=== PATIENT | male | born 1945 | race Caucasian/White ===

== ENCOUNTER 2017-02-28 00:47 | Outpatient (CLI) | payer MEDICARE, OTHER | END 2017-02-28 00:48 | disposition critical access hospital (66) | LOC: EMS 00:47 | PROVIDERS: ATTEND Surgery | DX: R07.9 Chest pain, unspecified (principal) | CPT/HCPCS: A0425; A0427 ==

== ENCOUNTER 2017-02-28 01:27 | Emergency (ER) | payer MEDICARE, OTHER ==
[2017-02-28 02:11] LABS: BASOPHILS # (AUTO) 0.1 10^3/uL (0.0-0.1); BASOPHILS % (AUTO) 1.1 %; EOSINOPHILS # (AUTO) 0.3 10^3/uL (0.0-0.7); EOSINOPHILS % (AUTO) 3.9 %; HCT - HEMATOCRIT 46.2 % (42.0-52.0); HGB - HEMOGLOBIN 15.8 g/dL (14.0-18.0); LYMPHOCYTES # (AUTO) 1.6 10^3/uL (1.5-3.5); LYMPHOCYTES % (AUTO) 18.4 %; MEAN CORPUSCULAR HEMOGLOBIN 30.4 pg (27.0-31.0); MEAN CORPUSCULAR HGB CONC 34.2 g/dL (32.0-36.0); MEAN PLATELET VOLUME 7.9 fL (7.4-11.4); MONOCYTES # (AUTO) 0.5 10^3/uL (0.0-1.0); MONOCYTES % (AUTO) 6.3 %; NEUTROPHILS % (AUTO) 70.3 %; RED BLOOD COUNT 5.19 10^6/uL (4.70-6.10); RED CELL DISTRIBUTION WIDTH 13.4 % (12.0-15.0); UNCORRECTED WHITE BLOOD COUNT 8.5 x10^3/uL; WHITE BLOOD COUNT 8.5 x10^3/uL (4.8-10.8)
[2017-02-28 02:19] LABS: ALBUMIN/GLOBULIN RATIO 1.2 (1.0-2.2); BILIRUBIN,TOTAL 1.1 mg/dL (0.2-1.0); CALCIUM 8.7 mg/dL (8.5-10.3); POTASSIUM 3.9 mmol/L (3.5-5.0); TOTAL PROTEIN 6.8 g/dL (6.7-8.2)
[2017-02-28 03:17] VITALS: BP 140/77
--- NOTE | 2017-02-28 03:30 | ED Physician Documentation ---
PD HPI CHEST PAIN - Stated complaint Stated Complaint: CP - Chief complaint Chief Complaint: Cardiac - History obtained from History obtained from: Patient - History of Present Illness Timing - onset: Today Timing - onset during: Rest Timing - duration: Hours Timing - details: Abrupt onset, Now resolved, Intermittant Pain level max: 6 Pain level now: 0 Quality: Pain Location: Substernal Radiation: No: Jaw, Neck, Back, Abdominal, Left upper extremity, Right upper extremity Improved by: Nothing Worsened by: No: Exertion, Inspiration, Eating, Movement, Palpation, Position Associated symptoms: No: Shortness of air, Diaphoresis, Nausea, Vomiting, Feeling faint / dizzy, General Weakness, Palpitations, Cough Recently seen: Not recently seen - Additional information Additional information: patient complains of chest pain midline, initially started mid day today but resolved, then returned at 8:30 tonight. The pain has resolved prior to this evaluation. Review of Systems Constitutional: reports: Reviewed and negative Cardiac: reports: Chest pain / pressure. denies: Palpitations, Calf pain Respiratory: reports: Reviewed and negative GI: reports: Reviewed and negative PD PAST MEDICAL HISTORY - Past Medical History Past Medical History: Yes Cardiovascular: [place] - Past Surgical History Past Surgical History: Yes - Allergies Allergies/Adverse Reactions: Allergies Allergy/AdvReac Type Severity Reaction Status Date / Time No Known Drug Allergies Allergy Verified 02/28/17 01:49 - Social History Does the pt smoke?: No Smoking Status: Never smoker Does the pt have substance abuse?: No - Immunizations Immunizations are current?: Yes PD ED PE NORMAL - Vitals Vital signs reviewed: Yes - General General: Alert and oriented X 3, No acute distress, Well developed/nourished - Cardiac Cardiac: RRR, No murmur - Respiratory Respiratory: No respiratory distress, Clear bilaterally - Abdomen Abdomen: Normal bowel sounds, Soft, Non tender - Derm Derm: Normal color, Warm and dry - Extremities Extremities: No edema Results - Vitals Vitals: Oxygen O2 Source Room air - EKG (time done) No standard instances Rate: Rate (enter#) (63) Rhythm: NSR [place]: LAD Intervals: Normal ND QRS: Normal Ischemia: Normal ST segments, Q waves (III, aVF) - Labs Labs: Laboratory Tests 02/28/17 02/28/17 02/28/17 02:00 02:00 02:00 WBC 8.5 RBC 5.19 Hgb 15.8 Hct 46.2 MCV 89.0 MCH 30.4 MCHC 34.2 RDW 13.4 Plt Count 187 MPV 7.9 Neut # 6.0 Lymph # 1.6 [place] # 0.5 Eos # 0.3 Baso # 0.1 Absolute Nucleated RBC 0.00 Nucleated RBC % 0.0 Sodium 137 Potassium 3.9 Chloride 108 Carbon Dioxide 23 Anion Gap 6.0 BUN 16 Creatinine 1.0 Estimated GFR (MDRD) 74 L Glucose 128 H Calcium 8.7 Total Bilirubin 1.1 H AST 18 ALT 18 Alkaline Phosphatase 111 Troponin I < 0.04 Total Protein 6.8 Albumin 3.7 Globulin 3.1 Albumin/Globulin Ratio 1.2 Lipase 22 PD MEDICAL DECISION MAKING - ED course Complexity details: reviewed results, re-evaluated patient, considered differential, d/w patient Departure - Departure Disposition: 01 Home, Self Care Clinical Impression: Chest pain Qualifiers: Chest pain type: unspecified Qualified Code(s): R07.9 - Chest pain, unspecified Condition: Good Instructions: ED Chest Pain Atypical Unkn Cause Follow-Up: Maureen Jo PA [Primary Care Provider] - Comments: I recommend you contact your impregnating helper to arrange for next available appointment. You should also consider calling your primary care provider's office to inquire as to moving the scheduled appointment up to a sooner date. Discharge Date/Time: 02/28/17 03:55
== END 2017-02-28 03:55 | disposition home or self-care (01) ==
LOC: EDUNIT# → ED 01:27
DX: R07.9 Chest pain, unspecified (principal); I25.2 Old myocardial infarction
CPT/HCPCS: 36415; 80048; 80053; 83690; 84484; 85025; 93005; 99283

== ENCOUNTER 2017-03-08 08:38 | Outpatient (CLI) | payer MEDICARE, OTHER ==
--- NOTE | 2017-03-08 18:13 | XRAY Report ---
TWO VIEW CHEST: 03/08/2017 CLINICAL INDICATION: Shortness of breath. Frontal and lateral views of the chest demonstrate a normal cardiac silhouette. The lungs are clear. No effusion or pneumothorax is present. IMPRESSION: NORMAL CHEST. JOB #: [id number] EXT JOB #:[id number]
== END 2017-03-08 08:39 | disposition home or self-care (01) ==
LOC: DI.S 08:38
PROVIDERS: ATTEND Physician Assistant
DX: R06.02 Shortness of breath (principal); Z77.090 Contact with and (suspected) exposure to asbestos; Z87.891 Personal history of nicotine dependence
CPT/HCPCS: 71020

== ENCOUNTER 2017-03-24 06:41 | Outpatient (CLI) | payer MEDICARE, OTHER | END 2017-03-24 06:42 | disposition short-term general hospital (02) | LOC: EMS 06:41 | PROVIDERS: ATTEND Surgery | DX: R07.9 Chest pain, unspecified (principal); R42 Dizziness and giddiness | CPT/HCPCS: A0170; A0425; A0427 ==

== ENCOUNTER 2018-10-20 10:20 | Outpatient (CLI) | payer MEDICARE, OTHER | END 2018-10-20 10:21 | disposition EMS.NT | LOC: EMS 10:20 | PROVIDERS: ATTEND Surgery | DX: S61.451A Open bite of right hand, initial encounter (principal); W54.0XXA Bitten by dog, initial encounter; Y92.009 Unspecified place in unspecified non-institutional (private) residence as the place of occurrence of the external cause ==

== ENCOUNTER 2018-10-20 11:54 | Emergency (ER) | payer MEDICARE, OTHER ==
[2018-10-20 11:59] VITALS: BP 145/69
[2018-10-20] MEDS ORDERED: TETANUS/DIPHTHERIA/PERTUSSIS 0.5 ML SYRINGE IM ONE (13:36)
--- NOTE | 2018-10-20 13:36 | ED Physician Documentation ---
PD HPI ANIMAL BITE - Stated complaint Stated Complaint: DOG BITE - Chief complaint Chief Complaint: Laceration - History obtained from History obtained from: Patient, Family - History of Present Illness Location of injury(ies): RUE Details of the event: Dog, Bite, Pet animal, Well appearing, Immunized, Provoked, Animal can be observed Timing - onset: Today Timing - duration: Hours Timing - details: Abrupt onset, Still present Improved by: Rest, Immobilization Worsened by: Moving, Palpating Associated symptoms: No: Weakness, Numbness, Tingling, Swelling Contributing factors: Anticoagulated. No: Immunocompromised Similar symptoms before: Has not had sx before Recently seen: Not recently seen Review of Systems Constitutional: denies: Fever Eyes: denies: Decreased vision Ears: denies: Ear pain Nose: denies: Congestion Throat: denies: Sore throat Cardiac: denies: Chest pain / pressure Respiratory: denies: Cough GI: denies: Vomiting PD PAST MEDICAL HISTORY - Past Medical History Cardiovascular: [place] - Past Surgical History Past Surgical History: Yes - Allergies Allergies/Adverse Reactions: Allergies Allergy/AdvReac Type Severity Reaction Status Date / Time No Known Drug Allergies Allergy Verified 02/28/17 01:49 - Social History Does the pt smoke?: No Smoking Status: Never smoker Does the pt have substance abuse?: No - Immunizations Immunizations are current?: Yes PD ED PE NORMAL - Vitals Vital signs reviewed: Yes (hypertensive ) - General General: Alert and oriented X 3, No acute distress, Well developed/nourished - HEENT HEENT: Atraumatic, PERRL, EOMI - Respiratory Respiratory: No respiratory distress - Derm Derm: Normal color, Warm and dry - Extremities Extremities: No deformity, No edema, Other (over the dorsum of the right hand there is a skin tear without involvement of deeper structures. There is skin avulsion to the palmar surface of the hand as well oposite the dorsal finding consistent with a bite. Also without involvement of deeper structures. 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 There is an unknown tetanus status and the patient is given a tetanus booster. Departure - Departure Disposition: 01 Home, Self Care Clinical Impression: Dog bite of right hand Qualifiers: Encounter type: initial encounter Qualified Code(s): S61.451A - Open bite of right hand, initial encounter; W54.0XXA - Bitten by dog, initial encounter Condition: Stable Instructions: ED Bite Dog Follow-Up: Maureen Jo PA [Primary Care Provider] -
== END 2018-10-20 13:52 | disposition home or self-care (01) ==
LOC: ED 11:54
DX: S61.451A Open bite of right hand, initial encounter (principal); W54.0XXA Bitten by dog, initial encounter
CPT/HCPCS: 90471; 99282; 99283

== ENCOUNTER 2019-12-28 11:15 | Outpatient (CLI) | payer MEDICARE, OTHER ==
--- NOTE | 2019-12-28 12:28 | Ultrasound Report ---
PROCEDURE: Abdomen Limited INDICATIONS: ABN LIVER FUNCTION TEST TECHNIQUE: Real-time focused scanning was performed of the abdomen, with image documentation. COMPARISON: None FINDINGS: Examination is limited by body habitus and bowel gas. Liver is normal in size and demonstrates coarse echotexture. Left hepatic lobe is not seen. Right hep atic lobe not well seen but grossly unremarkable. Gallbladder is within normal limits. No biliary rafaela paulino dilatation. Pancreas is not well seen but is within normal limits as visualized. Right kidney is normal in size without hydronephrosis. IVC is patent. IMPRESSION: 1. Limited evaluation demonstrating no acute process. Reviewed by: Caitlyn Ramirez MD on 12/28/2019 12:27 PM PDT Approved by: Caitlyn Ramirez MD on 12/28/2019 12:27 PM PDT Station ID: [id number]
== END 2019-12-28 11:16 | disposition home or self-care (01) ==
LOC: DI 11:15
PROVIDERS: ATTEND Nurse Practitioner Family
DX: R94.5 Abnormal results of liver function studies (principal)
CPT/HCPCS: 76705

== ENCOUNTER 2020-08-25 08:00 | Outpatient (CLI) | payer MEDICARE, OTHER ==
--- NOTE | 2020-08-25 10:01 | XRAY Report ---
PROCEDURE: Toe(s) LT INDICATIONS: PAIN IN LEFT FOOT TECHNIQUE: 3 views of the fifth toe(s) acquired. COMPARISON: None FINDINGS: Bones: No fractures or dislocations. No suspicious bony lesions. Soft tissues: No suspicious soft tissue densities. IMPRESSION: No trauma or osteomyelitis found. Source of pain is not seen. Reviewed by: Duarte Khan MD on 08/25/2020 10:00 AM PDT Approved by: Duarte Khan MD on 08/25/2020 10:00 AM PDT Station ID: [id number]
== END 2020-08-25 23:59 | disposition home or self-care (01) ==
LOC: DI.S 08:00
PROVIDERS: ATTEND Physician Assistant
DX: M79.672 Pain in left foot (principal)

== ENCOUNTER 2023-10-07 06:55 | Emergency (ER) | payer MEDICARE ==
--- NOTE | 2023-10-07 07:10 | ED Physician Documentation ---
PD HPI OPHTHO - Stated complaint Stated Complaint: RT EYE SWELLING - Chief complaint Chief Complaint: Heent - History obtained from History obtained from: Patient - History of Present Illness Timing - onset: How many days ago (4-5) Timing - duration: Days (4-5) Timing - details: Gradual onset Location: Right Quality / character: Aching Associated symptoms: Redness, Swelling (has had swelling and tender focally for 4-5 days, with now worse tender and redness spreading to whole of upper eyelid, mild output when he squeezed it some.), Discharge (just the past 1-2 days) Contributing factors: No: Exposed to conjunctivitis, Recent URI, Wears contacts Similar symptoms before: Has not had sx before Review of Systems Constitutional: denies: Fever, Chills, Myalgias Eyes: reports: Decreased vision (he says is slightly cloudy when there is some drainage.). denies: Loss of vision PD PAST MEDICAL HISTORY - Past Medical History Past Medical History: Yes Cardiovascular: [place] - Past Surgical History Past Surgical History: Yes - Present Medications Home Medications: Ambulatory Orders Medication Instructions Recorded Confirmed Apixaban [Eliquis] 1 tab PO BID 10/07/23 10/07/23 Atorvastatin Calcium [Lipitor] 1 tab PO DAILY 10/07/23 10/07/23 Doxycycline Hyclate 100 mg PO BID 5 Days #10 cap 10/07/23 Erythromycin Base [Erythromycin 1 applic RIGHTEYE QID #3.5 gm 10/07/23 Ophthalmic Ointment] Metoprolol Tartrate [Lopressor] 1 tab PO BID 10/07/23 10/07/23 Nitroglycerin [Nitrostat] 1 tab SL PRN PRN 10/07/23 10/07/23 Sotalol HCl [Betapace AF] 1 tab PO BID 10/07/23 10/07/23 - Allergies Allergies/Adverse Reactions: Allergies Allergy/AdvReac Type Severity Reaction Status Date / Time No Known Drug Allergies Allergy Verified 10/07/23 07:03 - Social History Does the pt smoke?: No Smoking Status: Never smoker Does the pt drink ETOH?: No Does the pt have substance abuse?: No - Immunizations Immunizations are current?: Yes - POLST Patient has POLST: No PD ED PE NORMAL - Vitals Vital signs reviewed: Yes - General General: Alert and oriented X 3, No acute distress, Well developed/nourished - HEENT HEENT: PERRL, EOMI, Other (right upper eyelid with mid/lateral stye lump which is red, tender (hordeolum now). There is also redness and swelling of upper eyelid c/w cellulitic extension. ) PD ED PE EXPANDED - Eyes Eyes: EOMI, Anterior chambers clear. No: Conj/sclera FB, Fluorescein uptake Results - Vitals Vitals: Oxygen O2 Source Room air PD Medical Decision Making - ED course Complexity details: considered differential (apparent stye for several days, now seeming infected with cellulitic extension to upper eyelid. No apparent effect on eye itself. Normal dye staining. Treat with topical but also oral abx due to cellulitic extension. ), d/w patient, d/w family (spouse) Departure - Departure Disposition: 01 Home, Self Care Clinical Impression: Eyelid cellulitis Hordeolum Qualifiers: Hordeolum type: externum Laterality: right Eyelid: upper Qualified Code(s): H00.011 - Hordeolum externum right upper eyelid Condition: Stable Record reviewed to determine appropriate education?: Yes Instructions: ED Cellulitis Facial, ED Hordeolum Follow-Up: Buffy Amin ARNP [Primary Care Provider] - Prescriptions: Doxycycline Hyclate 100 mg PO BID 5 Days #10 cap Erythromycin Base [Erythromycin Ophthalmic Ointment] 1 applic RIGHTEYE QID #3.5 gm Comments: Warm moist compresses lay gently on the eyelid to help promote unclogging of the gland in the eyelid. This will help the most and resolving the issue. It does look like it has developed an infection not only of the gland but also to the soft tissue (cellulitis). As such we would go with some antibiotics at this point both topically and orally. That should help clear the infection. The gland still needs to unclog so continue with the warm compresses and gentle massage to the area I would anticipate improvement over the next few days with resolution of the redness. There may remain a mild lump to the area for a week or 2 as long as it is not tender or red or draining. I sent your prescriptions to your preferred pharmacy. Forms: PCP List Discharge Date/Time: 10/07/23 07:43
[2023-10-07] MEDS: ERYTHROMYCIN OPHTH OINT 1 GM TUBE RIGHTEYE STA (07:31)
[2023-10-07] MEDS: DOXYCYCLINE 100 MG TABLET PO STA (07:31)
[2023-10-07 07:53] VITALS: BP 142/86; O2SAT 98
== END 2023-10-07 07:43 | disposition home or self-care (01) ==
LOC: ED 06:55
DX: H00.031 Abscess of right upper eyelid (principal); H00.011 Hordeolum externum right upper eyelid
CPT/HCPCS: 99283; A9270; J3490